=== PATIENT | female | born 1985 | race Hispanic/Latino ===

== ENCOUNTER 2017-07-25 10:52 | Outpatient (CLI) | payer BC | END 2017-07-25 10:53 | disposition home or self-care (01) | LOC: CTENTCT 10:52 | PROVIDERS: ATTEND Otolaryngology Plastic Surgery within the Head & Neck | DX: J01.81 Other acute recurrent sinusitis (principal) | CPT/HCPCS: 70486 ==

== ENCOUNTER 2017-08-03 08:52 | Outpatient (CLI) | payer BC | END 2017-08-03 08:53 | disposition home or self-care (01) | LOC: BICULT 08:52 | PROVIDERS: ATTEND Internal Medicine Gastroenterology | DX: K21.9 Gastro-esophageal reflux disease without esophagitis (principal); R10.31 Right lower quadrant pain; Q44.1 Other congenital malformations of gallbladder; M51.26 Other intervertebral disc displacement, lumbar region | CPT/HCPCS: 76700 ==